=== PATIENT | female | born 2000 | race Caucasian/White ===

== ENCOUNTER 2025-08-19 15:25 | Emergency (ER) | payer OTHER ==
[2025-08-19] MEDS ORDERED: Ketorolac Tromethamine 30 MG (1 mL) VIAL ONE (16:41)
[2025-08-19] MEDS ORDERED: HYDROcodone/Acetaminophen 10/325 mg Tablet ONE (16:41)
== END 2025-08-19 17:05 | disposition home or self-care (01) ==
LOC: ERS 15:25
DX: N75.0 Cyst of Bartholin's gland (principal)
CPT/HCPCS: 56420; J1885